=== PATIENT | female | born 1975 | race Two or more races ===

== ENCOUNTER 2021-12-12 10:42 | Emergency (ER) | payer OTHER ==
[~2021-12-12] VITALS: Ht 157.5 cm; Wt 62.1 kg
[2021-12-12] MEDS ORDERED: PROVENTIL HFA6.7 GM (10:57)
[2021-12-12] MEDS ORDERED: SINGULAIR4 M1 PO (10:58)
== END 2021-12-12 15:45 | disposition home or self-care (01) ==
LOC: ER 10:42
DX: R10.13 Epigastric pain (principal)